=== PATIENT | female | born 1975 | race Hispanic/Latino ===

== ENCOUNTER 2018-08-25 08:52 | Outpatient (CLI) | payer BC | END 2018-08-25 08:53 | disposition home or self-care (01) | LOC: RAD 08:52 | DX: R11.0 Nausea (principal); R10.9 Unspecified abdominal pain ==

== ENCOUNTER 2018-09-03 06:45 | Outpatient (CLI) | payer BC | END 2018-09-03 06:46 | disposition home or self-care (01) | LOC: CARDIO 06:45 | DX: R00.2 Palpitations (principal); R07.89 Other chest pain ==